=== PATIENT | male | born 1980 | race Caucasian/White ===

== ENCOUNTER 2018-04-07 23:21 | Emergency (ER) | payer BC ==
[~2018-04-07] VITALS: Ht 185.4 cm; Wt 117.0 kg
[2018-04-07 23:34] VITALS: BP 161/106
[2018-04-07] MEDS ORDERED: COZAAR 50 MG TA50 M2 PO (23:36)
[2018-04-08] MEDS ORDERED: KEFLEX500 M1 PO (00:24)
== END 2018-04-08 00:39 | disposition home or self-care (01) ==
LOC: M.ERS 23:21
DX: S61.216A Laceration without foreign body of right little finger without damage to nail, initial encounter (principal); I10 Essential (primary) hypertension; W22.8XXA Striking against or struck by other objects, initial encounter; Y93.89 Activity, other specified; Y92.89 Other specified places as the place of occurrence of the external cause; Y99.8 Other external cause status

== ENCOUNTER 2020-06-06 11:53 | Emergency (ER) | payer BC ==
[~2020-06-06] VITALS: Ht 185.4 cm; Wt 110.2 kg
[~2020-06-06 11:53] MED LIST: COZAAR 50 MG TA50 M2 PO; KEFLEX500 M1 PO
[2020-06-06] MEDS ORDERED: LOSARTAN POTASS50 MG PO (12:07)
[2020-06-06] MEDS ORDERED: CARVEDILOL12.5 MG PO (12:07)
[2020-06-06 12:41] VITALS: BP 179/109
== END 2020-06-06 12:42 | disposition home or self-care (01) ==
LOC: M.ERS 11:53
DX: R04.0 Epistaxis (principal); I10 Essential (primary) hypertension